=== PATIENT | male | born 1995 | race Caucasian/White ===

== ENCOUNTER 2022-03-03 04:35 | Emergency (ER) | payer OTHER ==
[~2022-03-03] VITALS: Ht 172.7 cm; Wt 68.0 kg
--- NOTE | 2022-03-03 04:35 | NUR ---
PT BIB [facility], PREBOOK. TAKEN TO CHAIR
[2022-03-03 04:40] VITALS: BP 137/71
--- NOTE | 2022-03-03 04:56 | NUR ---
Patient being evaluated by physician
[2022-03-03 05:18] VITALS: BP 137/71
--- NOTE | 2022-03-03 05:18 | NUR ---
PATIENT BIB [facility] POLICE DEPT. PATIENT EXAMINED BY DR. MCGUIRE. PATIENT MEDICALLY CLEARED AND RELEASED IN CUSTODY IN STABLE CONDITION. ORIGINAL PRE-BOOK FORM GIVEN TO OFFICER FATOU.
== END 2022-03-03 05:18 ==
LOC: MED 04:35
DX: M25.531 Pain in right wrist (principal); M25.532 Pain in left wrist; Z02.89 Encounter for other administrative examinations; V89.2XXA Person injured in unspecified motor-vehicle accident, traffic, initial encounter; Y93.89 Activity, other specified; Y92.89 Other specified places as the place of occurrence of the external cause; Y99.8 Other external cause status
CPT/HCPCS: 99283